=== PATIENT | female | born 1965 | race Caucasian/White ===

== ENCOUNTER 2020-09-14 21:42 | Emergency (ER) | payer OTHER ==
[~2020-09-14] VITALS: Ht 162.6 cm; Wt 83.0 kg
--- NOTE | 2020-09-14 21:53 | NUR ---
PT AAOX4. BIBS FOR C/O L SIDED CP RADIATING TO THE BACK 5/10 X 1 HOUR. TACHY ON MONITOR. PALCED IN BED 9 ON MONITOR AND PULSE OX.
[2020-09-14] MEDS ORDERED: ADENOSINE 6 MG/2 ML VIAL ONE (22:05)
--- NOTE | 2020-09-14 22:08 | NUR ---
GIVEN ADENOSINE 6MG IVP
[2020-09-14 22:22] LABS: BASOPHILS # (AUTO) 0.1 K/uL (0.0-0.2); BASOPHILS % (AUTO) 0.7 % (0.0-2.0); EOSINOPHILS % (AUTO) 0.9 % (0.0-6.0); HEMATOCRIT 41 % (33-45); HEMOGLOBIN 13.9 g/dL (11.5-14.8); LYMPHOCYTES # (AUTO) 3.9 K/uL (0.8-4.8); LYMPHOCYTES % (AUTO) 45.5 % (20.0-44.0); MEAN CORPUSCULAR HGB CONC 34 g/dl (31.0-36.0); MEAN CORPUSCULAR VOLUME 91 fL (82-100); MONOCYTES # (AUTO) 0.5 K/uL (0.1-1.30); MONOCYTES % (AUTO) 5.7 % (2.0-12.0); NEUTROPHILS % (AUTO) 47.2 % (43.0-81.0); PLATELET COUNT (AUTO) 275 K/uL (150-450); RED BLOOD CELL COUNT(AUTO) 4.51 MIL/uL (4.0-5.2); WHITE BLOOD COUNT (AUTO) 8.6 K/uL (4.3-11.0)
[2020-09-14] MEDS ORDERED: ASPIRIN 325 MG TABLET PO ONE (22:30)
[2020-09-14] MEDS ORDERED: ADENOSINE 6 MG/2 ML VIAL IVP ONE (22:30)
[2020-09-14 22:37] LABS: CALCIUM, SERUM 8.8 mg/dL (8.5-10.1); CARBON DIOXIDE 26 mmol/L (21-32); CHLORIDE 105 mmol/L (98-107); GLUCOSE 152 mg/dL (74-106); POTASSIUM 3.6 mmol/L (3.5-5.1); SODIUM SERUM 142 mmol/L (136-145); UREA NITROGEN, BLOOD 22 mg/dL (7-18)
[2020-09-14] MEDS ORDERED: ASPIRIN 325 MG TABLET ONE (22:53)
--- NOTE | 2020-09-14 23:27 | NUR ---
Patient does not wish to proceed with medical care recommended by Dr. Nichols. Patient given information related to possible complications, up to and including , which could occur as a result of leaving the hospital at this time. Patient verbalizes understanding of risks involved due to leaving against medical advice. Patient has signed AMA form.
[2020-09-14 23:36] VITALS: BP 125/76
== END 2020-09-14 23:36 | disposition left against medical advice (07) ==
LOC: ER 21:46
DX: I47.1 Supraventricular tachycardia (principal); Z60.2 Problems related to living alone
CPT/HCPCS: 36415; 71045; 80048; 84484; 85025; 93005 ×2; 96374; 99291; J0153; J7030

== ENCOUNTER 2022-08-07 10:05 | Emergency (ER) | payer MEDICAID, OTHER ==
[~2022-08-07] VITALS: Ht 170.2 cm; Wt 78.5 kg
[2022-08-07 10:39] VITALS: TEMP 98.5
[2022-08-07] MEDS ORDERED: CYCLOBENZAPRINE 10 MG TABLET PO ONE (11:30)
[2022-08-07] MEDS ORDERED: NAPROXEN 250 MG TABLET PO ONE (11:30)
[2022-08-07] MEDS ORDERED: CYCLOBENZAPRINE 10 MG TABLET ONE (11:31)
[2022-08-07] MEDS ORDERED: NAPROXEN 250 MG TABLET ONE (11:32)
[2022-08-07 13:24] VITALS: BP 153/95
== END 2022-08-07 13:26 | disposition home or self-care (01) ==
LOC: ER 10:10
DX: M79.641 Pain in right hand (principal); M79.642 Pain in left hand; M25.551 Pain in right hip; I10 Essential (primary) hypertension; F17.200 Nicotine dependence, unspecified, uncomplicated; Z60.2 Problems related to living alone; W01.0XXA Fall on same level from slipping, tripping and stumbling without subsequent striking against object, initial encounter; Y93.89 Activity, other specified; Y92.89 Other specified places as the place of occurrence of the external cause; Y99.8 Other external cause status
CPT/HCPCS: 73130-TC; 73502